=== PATIENT | female | born 1985 | race Caucasian/White ===

== ENCOUNTER 2017-11-05 12:10 | Emergency (ER) | payer BC ==
[~2017-11-05] VITALS: Ht 165.1 cm; Wt 66.7 kg
[2017-11-05] MEDS ORDERED: MOTRIN800 MG PO (15:35)
[2017-11-05] MEDS ORDERED: VALIUM5 MG PO (15:35)
[2017-11-05 15:57] VITALS: BP 116/77
== END 2017-11-05 16:14 | disposition home or self-care (01) ==
LOC: EME 12:10
DX: S16.1XXA Strain of muscle, fascia and tendon at neck level, initial encounter (principal); F17.200 Nicotine dependence, unspecified, uncomplicated
CPT/HCPCS: 99281; 99284; J1885; J2060